=== PATIENT | male | born 1975 | race Caucasian/White ===

== ENCOUNTER 2018-12-10 23:10 | Emergency (ER) | payer OTHER ==
[2018-12-10 23:28] VITALS: BP 145/82; PULSE 80; TEMP 98.2; BMI 28.8
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
== END 2018-12-10 23:56 | disposition home or self-care (01) ==
LOC: JER 23:10
DX: S29.8XXA Other specified injuries of thorax, initial encounter (principal); V47.5XXA Car driver injured in collision with fixed or stationary object in traffic accident, initial encounter; Y92.488 Other paved roadways as the place of occurrence of the external cause; Y93.89 Activity, other specified; Y99.0 Civilian activity done for income or pay
CPT/HCPCS: 99282-25